=== PATIENT | female | born 1950 | race Two or more races ===

== ENCOUNTER 2017-08-19 09:24 | Outpatient (CLI) | payer MEDICARE, MEDICAID ==
[2017-08-19 09:28] LABS: APPEARANCE,URINE CLEAR; KETONES,URINE NEGATIVE (NEGATIVE); LEUKOCYTE ESTERASE ,URINE 1+ (NEGATIVE); NITRITE,URINE NEGATIVE (NEGATIVE); PH,URINE 6.5 (4.5-8.0); PROTEIN,URINE NEGATIVE (NEGATIVE); UROBILINOGEN,URINE NORMAL MG/DL (0.0-1.0)
[2017-08-19 09:32] LABS: BASOPHILS % (AUTO) 0.8 % (0.0-2.0); EOSINOPHILS % (AUTO) 1.8 % (0.0-3.0); LYMPHOCYTES % (AUTO) 29.2 % (20.0-45.0); MEAN CORPUSCULAR HEMOGLOBIN 31.7 PG (27.0-31.0); MEAN CORPUSCULAR HGB CONC 32.6 G/DL (32.0-36.0); MEAN CORPUSCULAR VOLUME 97 FL (80-99); MEAN PLATELET VOLUME 5.7 FL (6.5-10.1); MONOCYTES % (AUTO) 6.5 % (1.0-10.0); NEUTROPHILS % (AUTO) 61.8 % (45.0-75.0); PLATELET COUNT 415 K/UL (150-450); RED BLOOD COUNT 4.19 M/UL (4.20-5.40); RED CELL DISTRIBUTION WIDTH 11.3 % (11.6-14.8); WHITE BLOOD COUNT 8.3 K/UL (4.8-10.8)
[2017-08-19 09:37] LABS: BACTERIA,URINE FEW /HPF; SQUAMOUS EPITHELIAL CELL,UR FEW /LPF (NONE/OCC); WBC,URINE 0-2 /HPF (0 - 2)
[2017-08-19 09:46] LABS: INR 0.9 (0.9-1.1); PROTHROMBIN TIME 9.6 SEC (9.30-11.50)
[2017-08-19 09:58] LABS: ALANINE AMINOTRANSFERASE 23 U/L (12-78); ALBUMIN/GLOBULIN RATIO 0.9 (1.0-2.7); ANION GAP 8 (5-15); ASPARTATE AMINO TRANSFERASE 21 U/L (15-37); CALCIUM 9.4 MG/DL (8.5-10.1); CARBON DIOXIDE 26 MMOL/L (21-32); CHLORIDE 101 MMOL/L (98-107); GLOMERULAR FILTRATION RATE 55.5 mL/min (>60); SODIUM 135 MMOL/L (136-145); TOTAL PROTEIN 8.5 G/DL (6.4-8.2)
[2017-08-19 10:21] LABS: BILIRUBIN,DIRECT 0.2 MG/DL (0.0-0.3)
--- NOTE | 2017-08-19 16:05 | Diagnostic Imaging Report ---
Indication: Right upper quadrant pain, history of gallstones Technique: Strauss-scale and duplex images of the upper abdomen were obtained Comparison: None Findings: Gallbladder images gallstones. No gallbladder wall thickening or pericholecystic fluid. Sonographic Wu's sign is negative. Common bile duct measures 4 mm in diameter. No intrahepatic biliary ductal dilatation. Liver demonstrates normal echogenicity, no focal abnormality. Portal vein and hepatic veins are patent. Pancreas is unremarkable. Spleen is unremarkable. Left kidney measures 11.1 cm in length. Right kidney measures 10.1 cm length. Both kidneys demonstrate normal echogenicity. There is no hydronephrosis. No focal abnormality . Non-aneurysmal abdominal aorta . Impression: Cholelithiasis. Negative for dilated ducts No other significant abnormality demonstrated
== END 2017-08-19 11:24 | disposition home or self-care (01) ==
LOC: ULS 09:24
DX: R10.11 Right upper quadrant pain (principal); I10 Essential (primary) hypertension; D64.9 Anemia, unspecified; K80.20 Calculus of gallbladder without cholecystitis without obstruction
CPT/HCPCS: 36415; 76700; 80053; 81003; 82248; 85025; 85610; 85730; 87086; 87181

== ENCOUNTER 2017-09-06 08:17 | Day surgery (SDC) | payer MEDICARE, MEDICAID ==
--- NOTE | 2017-09-03 09:35 | Diagnostic Imaging Report ---
Indication: COUGH Technique: 2 views of the chest Comparison: none. Findings: Lungs and pleural spaces are clear. Heart size is normal. Bones are unremarkable except for minimal degenerative spondylosis change. Impression: No acute process
--- NOTE | 2017-09-03 21:45 | Pre-op HX & Phy Repo 2 SIG ---
DATE OF ADMISSION: 09/06/2017 DATE OF SURGERY: The patient is scheduled for surgery on 09/06/2017. REASON FOR ADMISSION: Cholelithiasis. HISTORY OF PRESENT ILLNESS: This 67-year-old female, presents with a 20-year history of gallstones. She presented initially with symptoms of gastroesophageal reflux. The patient had an exacerbation of gastroesophageal reflux symptoms approximately one year ago. She complained of bloating and upper abdominal discomfort after eating some spicy foods one month ago. She denied any problems with fever or chills. PAST MEDICAL HISTORY: Previous surgeries, appendectomy 25 years ago. ALLERGIES: None known. MEDICATIONS: Levothyroxine 100 mcg a day, Zocor 10 mg daily, lisinopril 10 mg daily, hydrochlorothiazide 25 mg daily and Pepcid 20 mg daily. SOCIAL HISTORY: Tobacco, none. Alcohol, none. Occupation, childcare worker. FAMILY HISTORY: The patient's parents had hypertension. REVIEW OF SYSTEMS: Positive findings include occasional migraine headaches. There is a questionable history of bronchitis. She is a 4, para 4 female whose last menstrual period was age 41. PHYSICAL EXAMINATION: GENERAL: Reveals a well-developed and well-nourished female, in no acute distress. HEENT: Normocephalic. Pupils are equal and reactive to light. There is no scleral icterus. NECK: Supple without adenopathy. LUNGS: Clear. HEART: Regular rhythm. ABDOMEN: Abdomen is flat and soft. There is a healed low midline scar. Wu sign is negative. There is no tenderness in the right upper quadrant. EXTREMITIES: No clubbing, cyanosis, or edema. IMPRESSION: 1. Cholelithiasis. 2. Hypertension. PLAN: The patient was advised to undergo a laparoscopic cholecystectomy, possible open cholecystectomy. The nature, risks and benefits of the procedure were explained. Cristo Braxton M.D. DR: FEDERICO JOB#: [id number] CC:
[2017-09-06] VITALS (12 sets, daily range): BP systolic 91–216; BP diastolic 39–129
[~2017-09-06] VITALS: Ht 162.6 cm; Wt 81.6 kg
--- NOTE | 2017-09-06 08:45 | Pre-op HX & Phy Repo 2 SIG ---
DATE OF ADMISSION: 09/06/2017 PLANNED PROCEDURE: Laparoscopic cholecystectomy. HISTORY OF PRESENT ILLNESS: The patient is a very pleasant, 67-year-old female. She has a prior history of anxiety, depression, hypothyroidism, and hypertensive heart disease. She recently presented to my office with complaints of abdominal pain associated with eating. She had an ultrasound that showed multiple large gallstones. She was sent for surgical evaluation and surgery has been recommended. The patient has otherwise been doing well. There are no reports of any fevers or chills. No chest pain or shortness of breath. PAST MEDICAL HISTORY: As above. PAST SURGICAL HISTORY: None. CURRENT MEDICATIONS: Reconciled and reviewed. ALLERGIES: None. SOCIAL HISTORY: There is no known history of tobacco, ethanol, or drugs. FAMILY HISTORY: None. REVIEW OF SYSTEMS: GENERAL: No fevers or chills. HEENT: No headaches or visual changes. CARDIOPULMONARY: No chest pain or shortness of breath. GASTROINTESTINAL: Positive abdominal pain. No nausea. No vomiting. No melena. No bright red blood per rectum. GENITOURINARY: No urgency or frequency. MUSCULOSKELETAL: No joint pain or swelling. NEUROLOGIC: No history of seizures or syncope. PHYSICAL EXAMINATION: VITAL SIGNS: Temperature 98 degrees, blood pressure 120/76, pulse of 80, and respirations 20. GENERAL: The patient is a well-developed, well-nourished female, in no apparent distress. She is awake, alert, and oriented x4. NECK: Supple. There is no lymphadenopathy. No jugular venous distention. HEART: Regular rate and rhythm. LUNGS: Clear. ABDOMEN: Soft, nontender, and nondistended. EXTREMITIES: Without clubbing, cyanosis, or edema. LABORATORY AND DIAGNOSTIC DATA: Preop laboratory showed a 8, hemoglobin of 13, hematocrit of 40, and platelet count of 415. Sodium 135, potassium 4, chloride 101, bicarbonate 26, BUN 24, and creatinine was 1. Total bilirubin of 1.1. AST 21 and ALT was 23. The INR was 0.9 with a PTT of 25. Urine was clear. EKG showed sinus rhythm without any acute ST-T wave changes. Preoperative chest x-ray was also clear. ASSESSMENT: This is a pleasant female with a history of anxiety, depression, hypertension, and hypothyroidism, referred for elective cholecystectomy. The patient is medically stable for the planned procedure. She is average risk for age and sex. We would proceed as planned. I do not anticipate any issues. The patient will be followed closely while in the hospital. Pascual Laughlin M.D. DR: Pilar JOB#: [id number] CC: Cristo Braxton M.D.; Fax#: [phone]
[2017-09-06] MEDS ORDERED: SIMVASTATIN10 MG ORAL (08:58)
[2017-09-06] MEDS ORDERED: LEVOTHYROXINE100 MCG ORAL (08:58)
[2017-09-06] MEDS ORDERED: HYDROCHLOROTHIA25 MG ORAL (08:59)
[2017-09-06] MEDS ORDERED: LISINOPRIL20 MG ORAL (08:59)
--- NOTE | 2017-09-06 09:48 | Anethesia Preoperative Eval ---
Anesthesia Pre-op PMH/ROS General Date of Evaluation: Sep 06, 2017 Anesthesiologist: Rajan ASA Score: ASA 2 Mallampati Score Class I : Soft palate, uvula, fauces, pillars visible Class II: Soft palate, uvula, fauces visible Class III: Soft palate, base of uvula visible Class IV: Only hard plate visible Mallampati Classification: Class II Surgeon: Fox Diagnosis: cholecystitis Surgical Procedure: lap renaldo Anesthesia History: none Family History: no anesthesia problems Allergies: Coded Allergies: OMEPRAZOLE (Verified Allergy, Intermediate, 09/06/17) rashes Medications: see eMAR Past Medical History Cardiovascular: Denies: HTN, CAD, NM, valve dz, arrhythmia, other Pulmonary: Denies: asthma, COPD, PATRICIA, other Gastrointestinal/Genitourinary: Reports: GERD, Denies: CRI, ESRD, other Neurologic/Psychiatric: Reports: depression/anxiety, Denies: dementia, CVA, TIA, other Endocrine: Reports: hypothyroidism, Denies: DM, steroids, other HEENT: Denies: cataract (L), cataract (R), glaucoma, [place] (L), [place] (R), other Hematology/Immune: Denies: anemia, DVT, bleeding disorder, other Musculoskeletal/Integumentary: Reports: OA, Denies: RA, DJD, DDD, edema, other PSxH Narrative: lap appy Anesthesia Pre-op Phys. Exam Physician Exam Last Vital Signs Date Time Temp Pulse Resp B/P (MAP) Pulse Ox O2 Delivery O2 Flow Rate FiO2 09/06/17 09:07 97.2 65 18 133/54 100 Room Air Constitutional: NAD Cardiovascular: RRR Respiratory: CTA Airway Exam Mallampati Score: Class II Anesthesia Pre-op A/P Labs see chart Studies Pre-op Studies: EKG - sr Risk Assessment & Plan Assessment: ASA II Plan: GA Status Change Before Surgery: No Pre-Antibiotics Drug: OLIVE TEMPLE M.D. Sep 06, 2017 09:48
--- NOTE | 2017-09-06 09:48 | Anethesia Preoperative Eval ---
Anesthesia Pre-op PMH/ROS General Date of Evaluation: Sep 06, 2017 Anesthesiologist: Rajan ASA Score: ASA 2 Mallampati Score Class I : Soft palate, uvula, fauces, pillars visible Class II: Soft palate, uvula, fauces visible Class III: Soft palate, base of uvula visible Class IV: Only hard plate visible Mallampati Classification: Class II Surgeon: Fox Diagnosis: cholecystitis Surgical Procedure: lap renaldo Anesthesia History: none Family History: no anesthesia problems Allergies: Coded Allergies: OMEPRAZOLE (Verified Allergy, Intermediate, 09/06/17) rashes Medications: see eMAR Past Medical History Cardiovascular: Denies: HTN, CAD, DC, valve dz, arrhythmia, other Pulmonary: Denies: asthma, COPD, PATRICIA, other Gastrointestinal/Genitourinary: Reports: GERD, Denies: CRI, ESRD, other Neurologic/Psychiatric: Reports: depression/anxiety, Denies: dementia, CVA, TIA, other Endocrine: Reports: hypothyroidism, Denies: DM, steroids, other HEENT: Denies: cataract (L), cataract (R), glaucoma, [place] (L), [place] (R), other Hematology/Immune: Denies: anemia, DVT, bleeding disorder, other Musculoskeletal/Integumentary: Reports: OA, Denies: RA, DJD, DDD, edema, other PSxH Narrative: lap appy Anesthesia Pre-op Phys. Exam Physician Exam Last Vital Signs Date Time Temp Pulse Resp B/P (MAP) Pulse Ox O2 Delivery O2 Flow Rate FiO2 09/06/17 09:07 97.2 65 18 133/54 100 Room Air Constitutional: NAD Cardiovascular: RRR Respiratory: CTA Airway Exam Mallampati Score: Class II Anesthesia Pre-op A/P Labs see chart Studies Pre-op Studies: EKG - sr Risk Assessment & Plan Assessment: ASA II Plan: GA Status Change Before Surgery: No Pre-Antibiotics Drug: OLIVE TEMPLE M.D. Sep 06, 2017 09:48
[2017-09-06] MEDS ORDERED: LR 1000ml 1,000 ML IVLG SCH (09:49)
--- NOTE | 2017-09-06 09:49 | Immediate Post-Op Evaluation ---
Immediate Post-Op Evalulation Immediate Post-Op Evalulation Procedure: lap renaldo Date of Evaluation: Sep 06, 2017 Time of Evaluation: 11:27 IV Fluids: 1L Blood Products: 0 Estimated Blood Loss: min Urinary Output: 0 Blood Pressure Systolic: 174 Blood Pressure Diastolic: 95 Pulse Rate: 88 Respiratory Rate: 16 O2 Sat by Pulse Oximetry: 97 Temperature (Fahrenheit): 97 Pain Score (1-10): 0 Nausea: No Vomiting: No Complications 0 Patient Status: awake, reacts, patent, none Hydration Status: adequate Drug: Ancef 2g Given Within 1 Hr of Incision: Yes Time Given: 10:15 OLIVE PEREZ M.D. Sep 06, 2017 09:49
--- NOTE | 2017-09-06 09:49 | 48 Hour Post Anesthesia Eval ---
Post Anesthesia Evaluation Procedure: lap renaldo Date of Evaluation: Sep 06, 2017 Airway: patent Nausea: No Vomiting: No Pain Intensity: 0 Hydration Status: adequate Cardiopulmonary Status: at baseline Mental Status/LOC: patient returned to baseline Post-Anesthesia Complications: 0 Follow-up care needed: ready to discharge OLIVE PEREZ M.D. Sep 06, 2017 09:49
[2017-09-06] MEDS ORDERED: Midazolam 2mg/2ml Inj ONE (10:00)
[2017-09-06] MEDS ORDERED: Propofol 200mg/20ml IV ONE (10:00)
[2017-09-06] MEDS ORDERED: Zemuron 50mg/5ml Inj IV ONE (10:00)
[2017-09-06] MEDS ORDERED: Dexamethasone 4mg/ml vial ONE (10:00)
[2017-09-06] MEDS ORDERED: Lidocaine 1% MPF 10mg/ml 5ml ONE (10:00)
[2017-09-06] MEDS ORDERED: fentaNYL 100 mcg/2 mL IV PRN (10:00)
[2017-09-06] MEDS ORDERED: Hydromorphone 0.5mg/0.5ml inj IVP PRN (10:00)
[2017-09-06] MEDS ORDERED: DiphenhydrAMINE 50mg/ml Inj IVP PRN (10:00)
[2017-09-06] MEDS ORDERED: Ketorolac 30mg Inj IV PRN (10:00)
[2017-09-06] MEDS ORDERED: Ketorolac 30mg Inj ONE (10:00)
[2017-09-06] MEDS ORDERED: Sterile Water Irrig 1000ml IRRIG ONE (10:00)
[2017-09-06] MEDS ORDERED: Metoclopramide 10mg/2ml Inj ONE (10:00)
[2017-09-06] MEDS ORDERED: fentaNYL 100 mcg/2 mL IV ONE (10:00)
[2017-09-06] MEDS ORDERED: NS Irrig 1000ml ONE (10:00)
[2017-09-06] MEDS ORDERED: Metoclopramide 10mg/2ml Inj IVP PRN (10:00)
[2017-09-06] MEDS ORDERED: LR 1000ml ONE (10:00)
--- NOTE | 2017-09-06 10:01 | Pre-Procedure Note/Attestation ---
Pre-Procedure Note/Attestation Complete Prior to Procedure Planned Procedure: not applicable Procedure Narrative: laparoscopic cholecystectomy, possible open cholecystectomy Indications for Procedure Pre-Operative Diagnosis: cholelithiasis Attestation I attest that I discussed the nature of the procedure; its benefits; risks and complications; and alternatives (and the risks and benefits of such alternatives ), prior to the procedure, with the patient (or the patient's legal district representative). I attest that, if there was a reasonable possibility of needing a blood transfusion, the patient (or the patient's legal district representative) was given the [facility] standardized written summary, pursuant to the [place] Blood Safety Act ([place] Health and Safety Code # 1645, as amended). I attest that I re-evaluated the patient just prior to the surgery and that there has been no change in the patient's H&P, except as documented below:none Cristo Braxton MD Sep 06, 2017 10:01
--- NOTE | 2017-09-06 10:01 | Pre-Procedure Note/Attestation ---
Pre-Procedure Note/Attestation Complete Prior to Procedure Planned Procedure: not applicable Procedure Narrative: laparoscopic cholecystectomy, possible open cholecystectomy Indications for Procedure Pre-Operative Diagnosis: cholelithiasis Attestation I attest that I discussed the nature of the procedure; its benefits; risks and complications; and alternatives (and the risks and benefits of such alternatives ), prior to the procedure, with the patient (or the patient's legal personal banking representative). I attest that, if there was a reasonable possibility of needing a blood transfusion, the patient (or the patient's legal personal banking representative) was given the [facility] standardized written summary, pursuant to the [place] Blood Safety Act ([place] Health and Safety Code # 1645, as amended). I attest that I re-evaluated the patient just prior to the surgery and that there has been no change in the patient's H&P, except as documented below:none Cristo Braxton MD Sep 06, 2017 10:01
--- NOTE | 2017-09-06 10:01 | Pre-Procedure Note/Attestation ---
Pre-Procedure Note/Attestation Complete Prior to Procedure Planned Procedure: not applicable Procedure Narrative: laparoscopic cholecystectomy, possible open cholecystectomy Indications for Procedure Pre-Operative Diagnosis: cholelithiasis Attestation I attest that I discussed the nature of the procedure; its benefits; risks and complications; and alternatives (and the risks and benefits of such alternatives ), prior to the procedure, with the patient (or the patient's legal entry level marketing representative). I attest that, if there was a reasonable possibility of needing a blood transfusion, the patient (or the patient's legal entry level marketing representative) was given the [facility] standardized written summary, pursuant to the [place] Blood Safety Act ([place] Health and Safety Code # 1645, as amended). I attest that I re-evaluated the patient just prior to the surgery and that there has been no change in the patient's H&P, except as documented below:none Cristo Braxton MD Sep 06, 2017 10:01
[2017-09-06] MEDS ORDERED: Bupivacaine w/Epi 0.75% 30ml Vial INJ ONE (10:38)
[2017-09-06] MEDS ORDERED: HYDROmorphone 1mg/ml Carpuject SUBQ PRN (11:30)
[2017-09-06] MEDS ORDERED: D5 1/2NS 1,000 ML IV SCH (11:30)
[2017-09-06] MEDS ORDERED: Norco 5mg/325mg tab ORAL PRN (11:30)
[2017-09-06] MEDS ORDERED: Tylenol #3 tab (300mg/30mg) ORAL PRN (11:30)
--- NOTE | 2017-09-06 11:32 | Brief Operative Note ---
Immediate Post Operative Note Operative Note Pre-op Diagnosis: cholelithiasis Procedure: laparoscopic cholecystectomy Post-op Diagnosis: same Surgeon: Sidney Braxton MD Craft Coordinator: Laurie Brown MD Anesthesiologist: Hellen Levy MD Anesthesia: general Specimen: yes Complications: none Condition: stable Fluids: 1000 ml crystalloid Estimated Blood Loss: minimal Drains: none Implant(s) used?: No Cristo Braxton MD Sep 06, 2017 11:32
--- NOTE | 2017-09-06 11:32 | Brief Operative Note ---
Immediate Post Operative Note Operative Note Pre-op Diagnosis: cholelithiasis Procedure: laparoscopic cholecystectomy Post-op Diagnosis: same Surgeon: Sidney Braxton MD Licensed Embalmer Supervisor: Laurie Brown MD Anesthesiologist: Hellen Levy MD Anesthesia: general Specimen: yes Complications: none Condition: stable Fluids: 1000 ml crystalloid Estimated Blood Loss: minimal Drains: none Implant(s) used?: No Cristo Braxton MD Sep 06, 2017 11:32
--- NOTE | 2017-09-06 16:15 | Operative Note - Dictated ---
DATE OF OPERATION: 09/06/2017 PREOPERATIVE DIAGNOSIS: Cholelithiasis. POSTOPERATIVE DIAGNOSIS: Cholelithiasis. PROCEDURE: Laparoscopic cholecystectomy. SURGEON: Cristo Braxton M.D. FIELD ENUMERATOR: Nicolas Brown M.D. ANESTHESIA: General endotracheal. ANESTHESIOLOGIST: Dr. Levy. INDICATIONS FOR SURGERY: This 67-year-old female, presented with problems of abdominal bloating and gastroesophageal reflux symptoms. She underwent an abdominal ultrasound that showed cholelithiasis. She was advised to undergo a laparoscopic cholecystectomy. The nature, risks, and benefits of the procedure were explained. OPERATIVE FINDINGS: Exploration of the abdomen through the laparoscope revealed no ascites. There were some violin string adhesions to the right lobe of the liver extending to the diaphragm. There were adhesions on the right side of the abdomen due to a previous appendectomy. The gallbladder had a pliable wall. The cystic duct was not dilated. The gallbladder contained numerous large greater than 1 cm stones. OPERATIVE TECHNIQUE: With the patient in the supine position and after induction of adequate general endotracheal anesthesia, the abdomen was prepped and draped in sterile fashion. A time-out was called. A vertical incision was made just below the umbilicus. The subcutaneous tissue was divided by sharp dissection with the scalpel. By blunt dissection, the rectus fascia was grasped with a Cira clamp. An incision was made on the midline of the fascia. The peritoneum was gently punctured with a Taylor clamp. Traction sutures of #0 Vicryl were placed on the fascial edges. A 10 mm Toy trocar was introduced through the puncture wound and properly secured. The 30-degree angle, 10 mm laparoscope was inserted. After inspection of the abdomen, a second 10 mm trocar was introduced in the subxiphoid region slightly to the right of the midline. Two 5 mm ports were introduced in the right mid abdomen. Some adhesions to the right lateral wall were taken down by blunt dissection and electrocautery. There was some omentum adherent to the fundus of the gallbladder. This was carefully dissected by blunt dissection and electrocautery. The fundus of the gallbladder was then elevated superiorly. The neck of the gallbladder was carefully dissected exposing the cystic duct. The lateral peritoneal attachments to the neck of the gallbladder and fundus were taken down with electrocautery. The medial peritoneal attachments are similarly dissected. The neck of the gallbladder was further dissected until the cystic duct was carefully elucidated. The critical view was obtained that is the cystic artery was identified. The cystic duct was doubly hemoclipped and divided. The cystic artery was dissected, doubly hemoclipped, and divided. The gallbladder was dissected off of the liver bed by blunt dissection and electrocautery. The gallbladder was removed through the subxiphoid port with the help of an EndoCatch apparatus. The right subphrenic space was irrigated and aspirated. The right subhepatic space was irrigated and aspirated. Several oozing points in the liver bed were cauterized. The lower abdomen was inspected by passing the laparoscope through the subxiphoid incision. There was no evidence of bowel injury. There was no hemorrhage in the lower abdomen. The pneumoperitoneum was reversed. The infraumbilical incision was closed by approximating the traction sutures. The subcutaneous layer was closed with a 4-0 Monocryl subcutaneous suture. The skin was closed with interrupted 4-0 Monocryl subcuticular stitches. The subxiphoid incision was closed with interrupted 4-0 Monocryl subcuticular sutures. The remaining 5 mm puncture wounds were closed with interrupted 4-0 Monocryl subcuticular sutures. The wounds were injected with 0.25 Marcaine with epinephrine solution. Sterile dressings were applied. The patient tolerated the procedure well and was returned to the recovery room in stable condition. The estimated blood loss was 10 mL. Cristo Braxton M.D. DR: PARISA JOB#: [id number] CC: Pascual Laughlin M.D.
== END 2017-09-06 14:25 | disposition home or self-care (01) ==
LOC: SUR 08:17
DX: K80.10 Calculus of gallbladder with chronic cholecystitis without obstruction (principal); K21.9 Gastro-esophageal reflux disease without esophagitis; F41.9 Anxiety disorder, unspecified; F32.9 Major depressive disorder, single episode, unspecified; E03.9 Hypothyroidism, unspecified; I11.9 Hypertensive heart disease without heart failure
CPT/HCPCS: 47562; 71020; J0360; J0690; J1100; J1885; J2250; J2405; J2704; J2765; J3010; J7120; 94003; 94150

== ENCOUNTER 2018-02-24 11:45 | Outpatient (CLI) | payer MEDICARE, MEDICAID ==
[~2018-02-24 11:45] MED LIST: HYDROCHLOROTHIA25 MG ORAL; LEVOTHYROXINE100 MCG ORAL; LISINOPRIL20 MG ORAL; SIMVASTATIN10 MG ORAL
[2018-02-24 12:23] LABS: BASOPHILS % (AUTO) 0.9 % (0.0-2.0); EOSINOPHILS % (AUTO) 1.5 % (0.0-3.0); HEMATOCRIT 38.3 % (37.0-47.0); HEMOGLOBIN 13.4 G/DL (12.0-16.0); LYMPHOCYTES % (AUTO) 26.8 % (20.0-45.0); MEAN CORPUSCULAR VOLUME 95 FL (80-99); MONOCYTES % (AUTO) 6.3 % (1.0-10.0); NEUTROPHILS % (AUTO) 64.5 % (45.0-75.0); PLATELET COUNT 327 K/UL (150-450); RED BLOOD COUNT 4.02 M/UL (4.20-5.40); RED CELL DISTRIBUTION WIDTH 11.3 % (11.6-14.8); WHITE BLOOD COUNT 7.5 K/UL (4.8-10.8)
[2018-02-24 12:46] LABS: ALANINE AMINOTRANSFERASE 25 U/L (12-78); ALBUMIN 4.2 G/DL (3.4-5.0); ALKALINE PHOSPHATASE 63 U/L (46-116); ANION GAP 10 mmol/L (5-15); ASPARTATE AMINO TRANSFERASE 18 U/L (15-37); BILIRUBIN,TOTAL 0.9 MG/DL (0.2-1.0); BLOOD UREA NITROGEN 21 mg/dL (7-18); CALCIUM 9.5 MG/DL (8.5-10.1); CARBON DIOXIDE 27 MMOL/L (21-32); CHLORIDE 105 MMOL/L (98-107); CHOLESTEROL 231 MG/DL (< 200); CREATININE 0.9 MG/DL (0.55-1.30); HDL CHOLESTEROL 49 MG/DL (40-60); POTASSIUM 4.1 MMOL/L (3.5-5.1); SODIUM 142 MMOL/L (136-145); TRIGLYCERIDES 249 MG/DL (30-150)
== END 2018-02-24 13:45 | disposition home or self-care (01) ==
LOC: LAB 11:45 → EDBD 11:45 → LAB 13:45
DX: E03.9 Hypothyroidism, unspecified (principal); I10 Essential (primary) hypertension
CPT/HCPCS: 36415; 80053; 80061; 83036; 84443; 85025